=== PATIENT | female | born 1980 | race African-American/Black ===

== ENCOUNTER 2021-02-08 09:16 | Emergency (ER) | payer BC, OTHER ==
[~2021-02-08] VITALS: Ht 165.1 cm; Wt 91.9 kg
--- NOTE | 2021-02-08 10:10 | NUR ---
INSTRUCTIONAL INTERVENTIONIST: PT TO ROOM FROM SEE [facility]IL[facility]
--- NOTE | 2021-02-08 10:16 | NUR ---
THROBBING HEADACHE, PHOTOPHOBIA, DIZZINESS, R FOOT NUMBNESS, NAUSEA AND VOMITING ON WEDNESDAY WITH ONSET WHILE JOGGING. INTERMITTANT HEADACHE NOW. NO FOCAL DEFICITS VSS
[2021-02-08 11:18] LABS: BASOPHILS % (AUTO) 1 % (0-1); EOSINOPHILS % (AUTO) 1 % (1-7); LYMPHOCYTES % (AUTO) 39 % (22-44); MEAN CORPUSCULAR HEMOGLOBIN 32.8 pg (27.0-34.8); MEAN CORPUSCULAR HGB CONC 33.8 g/dL (32.4-35.8); MEAN PLATELET VOLUME 8.8 fL (7.4-10.4); MONOCYTES % (AUTO) 9 % (2-9); NEUTROPHILS % (AUTO) 51 % (42-75); PLATELET COUNT 237 x10^3/uL (130-400); RED BLOOD COUNT 4.62 x10^6/uL (3.82-5.3); RED CELL DISTRIBUTION WIDTH 14.4 % (9.6-15.2)
[2021-02-08 11:20] LABS: ALANINE AMINOTRANSFERASE 29 U/L (12-78); ALBUMIN 3.9 g/dL (3.4-5.0); ANION GAP 7 mmol/L (5-15); CHLORIDE 105 mmol/L (98-107); CREATININE 0.87 mg/dL (0.55-1.02)
[2021-02-08 11:22] LABS: ALKALINE PHOSPHATASE 53 U/L (45-117); BILIRUBIN,TOTAL 0.7 mg/dL (0.2-1.0); INTERNATIONAL NORMALIZED RATIO 1.04 (0.93-1.1); PROTHROMBIN TIME 11.1 Seconds (9.6-11.5); TOTAL PROTEIN 8.3 g/dL (6.4-8.2)
[2021-02-08 11:23] LABS: MD NO
--- NOTE | 2021-02-08 11:49 | NUR ---
CT SCAN CALLED TO [facility]
--- NOTE | 2021-02-08 11:50 | NUR ---
TO CT SCAN NO CHANGE IN NEURO EXAM
[2021-02-08 12:25] VITALS: BP 139/94
== END 2021-02-08 12:44 | disposition home or self-care (01) ==
LOC: ED 10:25
DX: G43.C0 Periodic headache syndromes in child or adult, not intractable (principal); R11.2 Nausea with vomiting, unspecified; M54.2 Cervicalgia
CPT/HCPCS: 36415; 70450; 80053; 85025; 85610; 85730; 99284

== ENCOUNTER 2021-02-24 11:02 | Emergency (ER) | payer SELFPAY ==
[~2021-02-24] VITALS: Ht 165.1 cm; Wt 96.2 kg
--- NOTE | 2021-02-24 11:34 | NUR ---
Pt with multiple, general complaints starting 2 weeks ago when she went for a jog. Pt complains of WOOD that is relieved with Tylenol. N/V. SOB. States she cut back on her caffine intake 2 weeks ago but had "really strong black coffee" this AM. 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 Connected to all monitors. BP high but VSS.
[2021-02-24] MEDS ORDERED: SODIUM CHLORIDE 0.9% 1,000ML IVBOLUS ONE (12:00)
[2021-02-24] MEDS ORDERED: KETOROLAC 30 MG/1 ML IVPush ONE (12:00)
[2021-02-24] MEDS ORDERED: PROCHLORPERAZINE 5 MG/ML, 2ML IVPush ONE (12:00)
[2021-02-24] MEDS ORDERED: SODIUM CHLORIDE FLUSH 10ML SYR IVF ONE (12:00)
[2021-02-24] MEDS ORDERED: DIPHENHYDRAMINE 50 MG/ML, 1ML IVPush ONE (12:00)
[2021-02-24] MEDS ORDERED: PROCHLORPERAZINE 5 MG/ML, 2ML ONE (12:13)
[2021-02-24] MEDS ORDERED: DIPHENHYDRAMINE 50 MG/ML, 1ML ONE (12:14)
[2021-02-24] MEDS ORDERED: KETOROLAC 30 MG/1 ML ONE (12:14)
[2021-02-24 13:17] VITALS: BP 148/86
== END 2021-02-24 13:25 | disposition home or self-care (01) ==
LOC: ED 13:19
DX: G43.009 Migraine without aura, not intractable, without status migrainosus (principal); R11.2 Nausea with vomiting, unspecified
CPT/HCPCS: 96361; 96374; 96375; 99284; J0780; J1200; J1885; J7030